=== PATIENT | male | born 1945 | race Hispanic/Latino ===

== ENCOUNTER 2022-03-05 18:22 | Observation (INO) | payer OTHER ==
[~2022-03-05] VITALS: Ht 170.2 cm; Wt 81.6 kg
[2022-03-05] MEDS ORDERED: ZOSYN 3.375GM +NS 50ML IV SCH (19:00)
[2022-03-05] MEDS ORDERED: ONDANSETRON 4MG INJ IVP ONE (19:00)
[2022-03-05] MEDS ORDERED: MORPHINE 2 MG SYG IVP ONE (19:00)
[2022-03-05] MEDS ORDERED: 0.9% NACL 500ML IV.SOLN 500 ML IV ONE (19:00)
[2022-03-05 19:19] LABS: BASOPHILS % (AUTO) 0.3 % (0.0-5.0); EOSINOPHILS % (AUTO) 0.6 % (0.0-8.0); HEMATOCRIT 39.9 % (42-54); LYMPHOCYTES % (AUTO) 11.4 % (21.0-51.0); MEAN CORPUSCULAR HGB CONC 33.6 g/dL (32.0-36.0); MEAN CORPUSCULAR VOLUME 86.4 fL (79-99); MONOCYTES % (AUTO) 6.4 % (3.0-13.0); PLATELET COUNT (AUTO) 129 K/uL (130-400); RED BLOOD CELL COUNT(AUTO) 4.62 MIL/uL (4.50-6.20); RED CELL DISTRIBUTION WIDTH 13.5 % (11.0-15.5); WHITE BLOOD COUNT (AUTO) 8.9 K/uL (4.8-10.8)
[2022-03-05 19:30] LABS: CREATININE 1.7 mg/dL (0.5-1.5); POTASSIUM 4.5 mmol/L (3.5-5.1)
[2022-03-05 19:35] LABS: ALBUMIN 3.6 g/dL (3.5-5.0)
[2022-03-05 19:52] LABS: APPEARANCE,URINE Clear (CLEAR); BILIRUBIN,URINE Negative (NEGATIVE); COLOR,URINE Yellow (YELLOW); GLUCOSE, URINE (UA) TRACE mg/dL (NEGATIVE); KETONES,URINE Negative (NEGATIVE); LEUKOCYTE ESTERASE ,URINE Negative (NEGATIVE); NITRATE,URINE Negative (NEGATIVE); OCCULT BLOOD,URINE Trace (NEGATIVE); PROTEIN,URINE >=1000 mg/dL (NEGATIVE); UROBILINOGEN,URINE 0.2 mg/dL (0.2-1.0)
[2022-03-05 20:24] LABS: BACTERIA,URINE Rare /HPF (None Seen); HYALINE CASTS, URINE 0-1 /LPF (0-1 /LPF); RBC,URINE 0-1 /HPF (0-1); SQUAMOUS EPITHELIAL CELL,UR Rare /HPF (0-2); WBC,URINE 0-1 /HPF (0-1)
[2022-03-05] MEDS ORDERED: MAG/ALUM/SIMETH 30 ML UDCUP PO PRN (21:00)
[2022-03-05] MEDS ORDERED: ACETAMINOPHEN 325 MG TAB PO PRN ×2 (21:00)
[2022-03-05] MEDS ORDERED: DIPHENHYDRAMINE HCL 25 MG CAPSULE PO PRN (21:00)
[2022-03-05] MEDS ORDERED: HYDRALAZINE 20MG/ML VIAL IV PRN (21:00)
[2022-03-05] MEDS ORDERED: LACTULOSE 20 GM/30 ML UDCUP PO PRN (21:00)
[2022-03-05] MEDS ORDERED: ONDANSETRON 4MG INJ IV PRN (21:00)
[2022-03-05] MEDS ORDERED: HYDROCODONE/ACETAMINOPHEN 5/325 MG TAB PO PRN (21:00)
[2022-03-05] MEDS ORDERED: MORPHINE 4 MG SYG IV PRN (21:00)
[2022-03-05] MEDS: INSULIN HUMULIN R 100 UNIT/ML 3ML SQ SCH (21:00)
[2022-03-05] MEDS: FAMOTIDINE 20MG TAB PO SCH (21:00)
[2022-03-05 21:18] LABS: HEMOGLOBIN A1C 8.4 % (4.0-6.0)
[2022-03-06] VITALS (7 sets, daily range): BP systolic 113–161; BP diastolic 56–82
[2022-03-06] MEDS ORDERED: [UNRECOGNIZED DRUG - OTHER] (00:15)
[2022-03-06] MEDS ORDERED: METO50TA18 PO ×2 (00:15→00:28)
[2022-03-06] MEDS ORDERED: ATOR-2 PO (00:17)
[2022-03-06] MEDS ORDERED: CYAN100099 PO (00:28)
[2022-03-06] MEDS ORDERED: LISI10TA24 PO (00:28)
[2022-03-06] MEDS ORDERED: KRIL1CAP19 PO (00:28)
[2022-03-06] MEDS ORDERED: PIOG45TA64 PO (00:28)
[2022-03-06] MEDS ORDERED: SEMA2PEN SQ (00:30)
[2022-03-06] MEDS: ZOSYN 3.375GM+NS 50ML 50 ML IV SCH ×3 (04:20→20:42)
[2022-03-06 05:32] LABS: HEMATOCRIT 34.7 % (42-54); MEAN CORPUSCULAR HEMOGLOBIN 29.3 pg (27.0-33.0); MEAN CORPUSCULAR HGB CONC 33.4 g/dL (32.0-36.0); MEAN CORPUSCULAR VOLUME 87.6 fL (79-99); RED BLOOD CELL COUNT(AUTO) 3.96 MIL/uL (4.50-6.20); RED CELL DISTRIBUTION WIDTH 13.6 % (11.0-15.5); WHITE BLOOD COUNT (AUTO) 5.5 K/uL (4.8-10.8)
[2022-03-06 05:35] LABS: CREATININE 1.5 mg/dL (0.5-1.5); POTASSIUM 4.1 mmol/L (3.5-5.1)
[2022-03-06] MEDS: INSULIN HUMULIN R 100 UNIT/ML 3ML SQ SCH ×4 (06:46→20:43)
[2022-03-06] MEDS: ENOXAPARIN SODIUM 30 MG/0.3 ML SQ SCH (09:16)
[2022-03-06] MEDS ORDERED: BENZONATATE 100 MG CAPSULE PO PRN (16:30)
[2022-03-06] MEDS: FAMOTIDINE 20MG TAB PO SCH (20:42)
[2022-03-07 03:13] VITALS: BP 138/65
[2022-03-07] MEDS: ZOSYN 3.375GM+NS 50ML 50 ML IV SCH (04:19)
[2022-03-07 05:11] LABS: HEMATOCRIT 33.4 % (42-54); MEAN CORPUSCULAR HEMOGLOBIN 29.4 pg (27.0-33.0); MEAN CORPUSCULAR HGB CONC 33.5 g/dL (32.0-36.0); MEAN CORPUSCULAR VOLUME 87.7 fL (79-99); RED BLOOD CELL COUNT(AUTO) 3.81 MIL/uL (4.50-6.20); RED CELL DISTRIBUTION WIDTH 13.5 % (11.0-15.5); WHITE BLOOD COUNT (AUTO) 5.5 K/uL (4.8-10.8)
[2022-03-07 05:21] LABS: CREATININE 1.6 mg/dL (0.5-1.5); POTASSIUM 3.9 mmol/L (3.5-5.1)
[2022-03-07] MEDS: INSULIN HUMULIN R 100 UNIT/ML 3ML SQ SCH (06:09)
[2022-03-07 07:30] VITALS: BP 158/70
[2022-03-07] MEDS: ENOXAPARIN SODIUM 30 MG/0.3 ML SQ SCH (10:20)
[2022-03-07] MEDS ORDERED: CLIN-141 PO (10:54)
== END 2022-03-07 12:30 | disposition home or self-care (01) ==
LOC: EDH 18:22 → EDHIP 20:52 → 3DH 23:27
PROVIDERS: ADMIT Hospitalist; ATTEND Hospitalist
DX: L03.114 Cellulitis of left upper limb (principal); S61.432A Puncture wound without foreign body of left hand, initial encounter; E11.65 Type 2 diabetes mellitus with hyperglycemia; N17.9 Acute kidney failure, unspecified; I10 Essential (primary) hypertension; E78.5 Hyperlipidemia, unspecified; I25.10 Atherosclerotic heart disease of native coronary artery without angina pectoris; E78.00 Pure hypercholesterolemia, unspecified; W56.52XA Struck by other fish, initial encounter; Y93.89 Activity, other specified; Y92.89 Other specified places as the place of occurrence of the external cause; Z79.899 Other long term (current) drug therapy
CPT/HCPCS: 96365; 96375; 99284; 83036; 80053; 85025; 85651; 87040 ×2; 82948 ×6; 83605; 86140; 81001; 36415 ×3; 73130; 96372 ×2; 96366 ×3; 80048 ×2; 85027 ×2; G0378 ×39; J2405; J2543 ×5; J1650 ×2; J1815 ×3